=== PATIENT | female | born 1995 | race African-American/Black ===

== ENCOUNTER 2016-04-14 08:52 | Inpatient (IN) | payer MEDICAID, OTHER ==
[~2016-04-14] VITALS: Ht 167.6 cm; Wt 69.9 kg
[2016-04-14 10:35] LABS: HEMATOCRIT 39.6 % (36-46); MEAN CORPUSCULAR HEMOGLOBIN 26.9 pg (26.0-34.0); MEAN CORPUSCULAR HGB CONC 32.8 G/dL (31.0-37.0); MEAN CORPUSCULAR VOLUME 82 fL (80-100); PLATELET COUNT (AUTO) 232 K/uL (150-450); RED BLOOD CELL COUNT(AUTO) 4.83 MIL/uL (4.00-5.20); RED CELL DISTRIBUTION WIDTH 12.5 % (11.5-14.5); WHITE BLOOD COUNT (AUTO) 7.8 K/uL (4.5-11.0)
[2016-04-14 10:52] LABS: ANION GAP 13 mmol/L (8-16); CALCIUM, TOTAL 9.1 mg/dL (8.8-10.5); CARBON DIOXIDE 23 mmol/L (22-29); CHLORIDE 100 mmol/L (98-107); CREATININE 0.94 mg/dL (0.60-1.30); GLOMERULAR FILTR. RATE CALC > 60 mL/min (>60); POTASSIUM 3.5 mmol/L (3.5-5.1); SODIUM SERUM 136 mmol/L (136-145); UREA NITROGEN, BLOOD 7 mg/dL (7-18)
[2016-04-14 10:57] LABS: ALANINE AMINOTRANSFERASE 21 U/L (12-78); ALBUMIN 4.4 g/dL (3.4-5.0); ASPARTATE AMINOTRANSFERASE 19 U/L (15-37); BILIRUBIN,TOTAL 0.7 mg/dL (0.1-1.0); TOTAL PROTEIN, SERUM 8.4 g/dL (6.4-8.2)
[2016-04-14] MEDS ORDERED: HALOPERIDOL LACTATE 5 MG/ML VIAL IM ONE (11:00)
[2016-04-14] MEDS ORDERED: LORazepam 2 MG/ML VIAL IM ONE (11:00)
[2016-04-14 11:10] LABS: BAND NEUTROPHILS % (MANUAL) 12 % (1-5); LYMPHOCYTES % (MANUAL) 10 % (22-44); RBC MORPHOLOGY COMMENT NORMAL RBC MORPH; TOTAL CELLS COUNTED 100
[2016-04-14] MEDS ORDERED: INFLUENZA VIRUS VACCINE QVS 2016-17 (3YR+)/PF 60 MCG/0.5 ML SYRINGE IM ONE (15:15)
[2016-04-15 06:14] VITALS: BP 130/80
[2016-04-15 08:30] VITALS: BP 132/80
[2016-04-15] MEDS: SERTRALINE HCL 50 MG TABLET PO SCH (12:49)
[2016-04-15 16:00] VITALS: BP 122/60
[2016-04-15] MEDS: RisperiDONE 1 MG TABLET PO SCH ×2 (19:56→20:00)
[2016-04-16 08:13] LABS: HEMOGLOBIN A1C 5.1 % (4.5-6.2)
[2016-04-16 08:31] LABS: THYROID STIMULATING HORMONE 1.3 uIU/mL (0.36-3.74)
[2016-04-16 08:38] VITALS: BP 132/72
[2016-04-16] MEDS: SERTRALINE HCL 50 MG TABLET PO SCH (08:53)
[2016-04-16] MEDS ORDERED: HALOPERIDOL 5 MG TABLET PO PRN (13:45)
[2016-04-16] MEDS ORDERED: LORazepam 2 MG TABLET PO PRN (13:45)
[2016-04-16 16:46] VITALS: BP 138/60
[2016-04-16] MEDS: RisperiDONE 1 MG TABLET PO SCH (21:03)
[2016-04-17] MEDS ORDERED: LORazepam 2 MG/ML VIAL ONE (03:48)
[2016-04-17] MEDS ORDERED: DiphenhydrAMINE HCL 50 MG/ML VIAL ONE (03:49)
[2016-04-17] MEDS ORDERED: HALOPERIDOL LACTATE 5 MG/ML VIAL ONE (03:49)
[2016-04-17 04:00] VITALS: BP 135/68
[2016-04-17] MEDS ORDERED: HALOPERIDOL LACTATE 5 MG/ML VIAL IM ONE ×2 (04:00→12:00)
[2016-04-17] MEDS ORDERED: DiphenhydrAMINE HCL 50 MG/ML VIAL IM ONE ×2 (04:00→12:00)
[2016-04-17] MEDS ORDERED: LORazepam 2 MG/ML VIAL IM ONE ×2 (04:00→12:00)
[2016-04-17 04:30] VITALS: BP 135/62
[2016-04-17] MEDS: SERTRALINE HCL 50 MG TABLET PO SCH (09:00)
[2016-04-17 16:04] VITALS: BP 111/72
[2016-04-17 18:00] VITALS: BP 138/72
[2016-04-18] MEDS ORDERED: LORazepam 2 MG/ML VIAL IM ONE ×2 (01:45→10:00)
[2016-04-18] MEDS ORDERED: HALOPERIDOL LACTATE 5 MG/ML VIAL IM ONE ×2 (01:45→10:00)
[2016-04-18] MEDS ORDERED: DiphenhydrAMINE HCL 50 MG/ML VIAL IM ONE ×2 (01:45→10:00)
[2016-04-18] MEDS ORDERED: RisperiDONE 1 MG TABLET PO SCH (09:00)
[2016-04-18] MEDS: SERTRALINE HCL 50 MG TABLET PO SCH (09:00)
[2016-04-18] MEDS ORDERED: SERT50TA12 PO (16:39)
[2016-04-18] MEDS ORDERED: RISP1 PO (16:39)
== END 2016-04-18 17:30 | disposition home or self-care (01) | DRG 750 ==
LOC: EMS 08:54 → EEVIPCON 08:54 → EDBD 08:54 → B3A 12:12
DX: F25.1 Schizoaffective disorder, depressive type (principal); R45.851 Suicidal ideations; F12.90 Cannabis use, unspecified, uncomplicated; F17.200 Nicotine dependence, unspecified, uncomplicated; F14.90 Cocaine use, unspecified, uncomplicated; Z71.51 Drug abuse counseling and surveillance of drug abuser; Z28.21 Immunization not carried out because of patient refusal
CPT/HCPCS: 83036; 84439; 84443; 96372; 99285; G0480; J1200; J1630; J2060